=== PATIENT | male | born 1995 | race Caucasian/White ===

== ENCOUNTER 2020-01-27 13:12 | Emergency (ER) | payer BC ==
[2020-01-27] MEDS ORDERED: NORMAL SALINE 1000 ML 1,000 ML IV ONE (14:12)
--- NOTE | 2020-01-27 14:14 | ER Document Report ---
ED Medical Screen (RME) - General Chief Complaint: Dizziness Stated Complaint: DIZZINESS Time Seen by Provider: 01/27/20 14:11 Mode of Arrival: Ambulatory Information source: Patient Notes: 24-year-old male presented to ED for syncopal episode with dizziness and had to tap puller the car because he was very dizzy. He states he is very badly dehydrated. He states he was being seen for a ear infection and he was dizzy with that but this is different now. He is alert oriented respirations regular nonlabored speaking in full sentences. His lungs are clear to auscultation apical pulse is regular nonlabored. Eyes any history of syncopal episodes in the past. Denies any medical history. I have greeted and performed a rapid initial assessment of this patient. A comprehensive ED assessment and evaluation of the patient, analysis of test results and completion of medical decision making process will be conducted by an additional ED providers. - Related Data Allergies/Adverse Reactions: clavulanic acid Allergy (Verified 01/27/20 14:12) tramadol Allergy (Verified 01/27/20 14:12) Physical Exam - Vital signs Vitals: Temp Pulse Resp BP Pulse Ox 98.1 F 93 18 136/82 H 100 01/27/20 13:18 01/27/20 13:18 01/27/20 13:18 01/27/20 13:18 01/27/20 13:18 Course - Vital Signs Vital signs: Temp Pulse Resp BP Pulse Ox 98.1 F 93 18 136/82 H 100 01/27/20 13:18 01/27/20 13:18 01/27/20 13:18 01/27/20 13:18 01/27/20 13:18
[2020-01-27 14:42] LABS: ABSOLUTE EOSINOPHILS # (AUTO) 0.1 10^3/uL (0.0-0.6); ABSOLUTE LYMPHOCYTES (AUTO) 1.8 10^3/uL (0.5-4.7); ABSOLUTE MONOCYTES (AUTO) 0.5 10^3/uL (0.1-1.4); ABSOLUTE NEUT (AUTO) 4.9 10^3/uL (1.7-8.2); BASOPHILS % (AUTO) 0.4 % (0-2); EOSINOPHILS % (AUTO) 1.5 % (0-6); HEMATOCRIT 44.1 % (37.9-51.0); HEMOGLOBIN 15.5 g/dL (13.5-17.0); LYMPHOCYTES % (AUTO) 24.8 % (13-45); MEAN CORPUSCULAR HEMOGLOBIN 31.1 pg (27.0-33.4); MEAN CORPUSCULAR HGB CONC 35.1 g/dL (32.0-36.0); MEAN CORPUSCULAR VOLUME 89 fl (80-97); MONOCYTES % (AUTO) 7.1 % (3-13); PLATELET COUNT 119 10^3/uL (150-450); RED BLOOD COUNT 4.97 10^6/uL (4.35-5.55); RED CELL DISTRIBUTION WIDTH 12.9 % (11.5-14.0); SEGMENTED NEUTROPHILS % (AUTO) 66.2 % (42-78); TOTAL CELLS COUNTED % (AUTO) 100 %; WHITE BLOOD COUNT 7.4 10^3/uL (4.0-10.5)
[2020-01-27 14:47] LABS: APPEARANCE,URINE CLEAR; BILIRUBIN,URINE NEGATIVE (NEGATIVE); COLOR,URINE YELLOW; GLUCOSE, URINE NEGATIVE (NEGATIVE); KETONES,URINE NEGATIVE (NEGATIVE); LEUKOCYTE ESTERASE,URINE NEGATIVE (NEGATIVE); NITRITE,URINE NEGATIVE (NEGATIVE); PROTEIN,URINE NEGATIVE (NEGATIVE); URINE SPECIFIC GRAVITY 1.017; UROBILINOGEN,URINE NEGATIVE mg/dL (<2.0)
[2020-01-27 15:02] LABS: ALBUMIN 4.5 g/dL (3.5-5.0); ALKALINE PHOSPHATASE 63 U/L (38-126); ANION GAP 9 (5-19); ASPARTATE AMINO TRANSFERASE 23 U/L (17-59); BILIRUBIN,TOTAL 0.4 mg/dL (0.2-1.3); BLOOD UREA NITROGEN 11 mg/dL (7-20); CALCIUM 9.3 mg/dL (8.4-10.2); CARBON DIOXIDE 24 mmol/L (22-30); CHLORIDE 104 mmol/L (98-107); GLUCOSE 119 mg/dL (75-110); POTASSIUM 3.5 mmol/L (3.6-5.0); TOTAL PROTEIN 7.4 g/dL (6.3-8.2)
--- NOTE | 2020-01-27 15:09 | ER Document Report ---
ED Dizziness/Weakness - General Chief Complaint: Dizziness Stated Complaint: DIZZINESS Time Seen by Provider: 01/27/20 14:11 Mode of Arrival: Ambulatory Information source: Patient Notes: 24-year-old male history of chronic back pain takes Percocet on a regular basis for presents to the emergency room stating that while he was driving he started feeling lightheaded and dizzy and having palpitations. States he felt like he was going to pass out. States he pulled over the side of the road started to feel better and then drove himself to the emergency room. States he feels "I feel dehydrated". 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 Has been trying to drink plenty of water. States he was recently treated for a left otitis media still on antibiotics was having dizziness with the infection but does not feel that the dizziness is related to the ear infection. TRAVEL OUTSIDE OF THE [place] IN LAST 30 DAYS: No - Related Data Allergies/Adverse Reactions: clavulanic acid Allergy (Verified 01/27/20 14:12) tramadol Allergy (Verified 01/27/20 14:12) Home Medications: amoxicillin for ear infection. percocet for chronic back pain Past Medical History - General Information source: Patient - Social History Smoking Status: Current Every Day Smoker Chew tobacco use (# tins/day): No Frequency of alcohol use: None Drug Abuse: None Family History: Reviewed & Not Pertinent Patient has homicidal ideation: No Review of Systems - Review of Systems Constitutional: No symptoms reported Cardiovascular: Dizziness Respiratory: No symptoms reported Gastrointestinal: No symptoms reported Musculoskeletal: No symptoms reported Skin: No symptoms reported Neurological/Psychological: denies: Headaches -: Yes All other systems reviewed and negative Physical Exam - Vital signs Vitals: Temp Pulse Resp BP Pulse Ox 98.1 F 93 18 136/82 H 100 01/27/20 13:18 01/27/20 13:18 01/27/20 13:18 01/27/20 13:18 01/27/20 13:18 - General General appearance: Appears well, Alert In distress: Mild - HEENT Head: Normocephalic, Atraumatic Eyes: Normal Conjunctiva: Normal Extraocular movements intact: Yes Pupils: PERRL Fundascopic: Normal Ears: Normal External canal: Normal Tympanic membrane: Normal Nasal: Normal Mucous membranes: Normal Pharynx: Normal Neck: Normal. No: Lymphadenopathy - Respiratory Respiratory status: No respiratory distress Chest status: Nontender Breath sounds: Normal Chest palpation: Normal - Cardiovascular Rhythm: Regular Heart sounds: Normal auscultation Murmur: No - Extremities General upper extremity: Normal inspection, Nontender, Normal color, Normal ROM, Normal temperature General lower extremity: Normal inspection, Nontender, Normal color, Normal ROM, Normal temperature, Normal weight bearing. No: Fercho's sign - Neurological Neuro grossly intact: Yes Cognition: Normal Orientation: AAOx4 Demond Coma Scale Eye Opening: Spontaneous Demond Coma Scale Verbal: Oriented Demond Coma Scale Motor: Obeys Commands [place] Coma Scale Total: 15 Speech: Normal Motor strength normal: LUE, RUE, LLE, RLE Sensory: Normal Notes: No nystagmus, no photophobia, ambulatory with a steady gait. Negative Nylan Barany neurologically intact. - Skin Skin Temperature: Warm Skin Moisture: Dry Skin Color: Normal Course - Re-evaluation Re-evalutation: 01/27/20 16:48 Patient is resting comfortably he is in no acute distress at this time. Reviewed all lab results and EKG findings with patient. Patient states he still having some waves of dizziness but is not persistent. Will medicate with meclizine and reevaluate. 01/27/20 18:11 Patient is resting comfortably states his dizziness has fully resolved after receiving meclizine. He is ambulatory with a steady gait. He is neurovascularly and neurologically intact. Counseled to follow-up with his primary care physician for recheck in 2 days. Patient was given strict return to the emergency room guidelines. Return for any new or worsening symptoms. All questions were answered. Patient verbalized understanding and agrees with plan of care. - Vital Signs Vital signs: Temp Pulse Resp BP Pulse Ox 97.8 F 66 25 H 112/85 100 01/27/20 18:24 01/27/20 16:13 01/27/20 18:00 01/27/20 18:00 01/27/20 15:45 - Laboratory Result Diagrams: 01/27/20 14:25 01/27/20 14:25 Laboratory results interpreted by me: 01/27/20 01/27/20 01/27/20 14:25 14:25 14:25 Plt Count 119 L Potassium 3.5 L Glucose 119 H Creatine Kinase 205 H - Diagnostic Test Radiology reviewed: Reports reviewed - EKG Interpretation by Me EKG shows normal: Sinus rhythm Additional EKG results interpreted by me: 01/27/20 14:25 EKG was interpreted by ED physician Dr. Granda No acute STEMI Discharge - Discharge Clinical Impression: Dizziness Condition: Stable Disposition: HOME, SELF-CARE Instructions: Dizziness ([facility]), Meclizine ([facility]) Additional Instructions: Patient is counseled take meclizine as prescribed. Call his primary care physician for recheck in 2 days. Return for any new or worsening symptoms. You were seen today for lightheadedness/dizziness. The exact cause of your s ymptoms is unclear but your workup here is reassuring without any concerning findings. Please follow closely with your primary care physician in the next 1- 3 days. Return if you pass out, have additional episodes of lightheadedness, develop weakness/numbness, have persistent vomiting, chest pain, shortness of breath or any other symptoms that are concerning to you Prescriptions: Meclizine HCl [Antivert 25 mg Tablet] 25 mg PO TID PRN #21 tablet PRN Reason:
[2020-01-27 15:11] LABS: ADD MANUAL MICROSCOPIC YES
[2020-01-27 15:12] LABS: RBC,URINE NONE SEEN /HPF; WBC,URINE 0-1 /HPF
[2020-01-27 16:19] LABS: URINE AMPHETAMINES SCREEN NEGATIVE; URINE BARBITURATES SCREEN NEGATIVE; URINE BENZODIAZEPINES SCREEN NEGATIVE; URINE COCAINE SCREEN NEGATIVE; URINE MARIJUANA (THC) SCREEN NEGATIVE; URINE METHADONE SCREEN NEGATIVE; URINE PHENCYCLIDINE SCREEN NEGATIVE
[2020-01-27] MEDS ORDERED: MECLIZINE HCL 25 MG TABLET PO ONE (16:47)
[2020-01-27 18:12] VITALS: BP 112/85
--- NOTE | 2020-01-27 20:32 | EKG REPORT ---
SEVERITY:- NORMAL ECG - SINUS RHYTHM : Confirmed by: Reba Mccarthy MD 27-Jan-2020 20:31:59
== END 2020-01-27 18:24 | disposition home or self-care (01) ==
LOC: ER 13:12
DX: R42 Dizziness and giddiness (principal); H66.92 Otitis media, unspecified, left ear; M54.9 Dorsalgia, unspecified; G89.29 Other chronic pain; Z79.891 Long term (current) use of opiate analgesic; F17.200 Nicotine dependence, unspecified, uncomplicated; Z88.0 Allergy status to penicillin; Z88.6 Allergy status to analgesic agent
CPT/HCPCS: 93005; 99284; 96360; 36415; 82553; 82550; 83735; 85025; 80053; 81001; 84484; 80307; 93010; J7030